=== PATIENT | male | born 1955 ===

== ENCOUNTER 2017-08-04 07:59 | Day surgery (SDC) | payer MEDICARE, OTHER ==
[2017-08-04 08:33] VITALS: BMI 33.5
[2017-08-04] MEDS ORDERED: Lactated Ringer's 1,000 ML IV ONE (12:54)
--- NOTE | 2017-08-04 12:54 | CP.SDSHP ---
Same Day Surgery H & P - History Proposed Procedure: EGD / PEG Pre-Op Diagnosis: SEE NOTES - Previous Medical/Surgical History Cardiac: Hypertension, ASHD/CAD Neuro: TIA/CVA Misc: Other Pain: 2.Mild Pain - Allergies Allergies: Allergies No Known Allergies Allergy (Verified 08/04/17 08:14) - Physical Exam General Appearance: N Vital Signs: Vital Signs 08/04/17 08:19 Temperature 97.6 F Pulse Rate 80 Respiratory 20 Rate Blood Pressure 139/96 H O2 Sat by Pulse 97 Oximetry Mental Status: Confused Neuro: Other Heart: Other Lungs: Other GI: WNL - {Optional Preform as Required} Breast: WNL Abdomen: Other Rectal: Other Integument: WNL : WNL Ortho: WNL ENT: WNL - Impression Pt. Evaluated Today:Candidate for Anesthesia & Procedure: Yes - Date & Time Time: 12:54 Short Stay Discharge - Short Stay Discharge Admitting Diagnosis/Reason for Visit: GASTROSTOMY MALFUNCTION Disposition: HOME/ ROUTINE Referrals: PCP,NO [Primary Care Provider] -
[2017-08-04] MEDS ORDERED: Propofol 10 mg/ml Inj (20 ML) ONE (13:02)
[2017-08-04] MEDS ORDERED: Bacitracin 500 Units/gm Oint Foilpak UD ONE (13:23)
[2017-08-04 14:25] VITALS: RESP 19; TEMP 98.9
[2017-08-04 14:26] VITALS: BP 131/91; PULSE 96; O2SAT 98
== END 2017-08-04 15:40 | disposition home or self-care (01) ==
LOC: C.ENDO 07:59
PROVIDERS: ATTEND Specialist
DX: K94.23 Gastrostomy malfunction (principal); I25.10 Atherosclerotic heart disease of native coronary artery without angina pectoris; I10 Essential (primary) hypertension; Z86.73 Personal history of transient ischemic attack (TIA), and cerebral infarction without residual deficits; K21.0 Gastro-esophageal reflux disease with esophagitis; K44.9 Diaphragmatic hernia without obstruction or gangrene; K31.89 Other diseases of stomach and duodenum; R10.13 Epigastric pain; R13.10 Dysphagia, unspecified
CPT/HCPCS: 43246; 82948; 88300; C1773; J2001; J2704; J7120